=== PATIENT | female | born 1930 | race Caucasian/White ===

== ENCOUNTER 2017-02-08 07:37 | Inpatient (IN) | payer OTHER, MEDICAID ==
--- NOTE | 2017-02-08 07:50 | EDPHY ---
HPI/HX/ROS/PE/MDM Narrative: CHIEF COMPLAINT: Fall HPI: The patient is an 86-year-old female with dementia who lives at the [facility]. Over the last 24 hr, the patient apparently had a fall and was found on the floor next to her bed. It is unclear what happened or how long she was there for. The patient's only complaint is mild pain in the upper neck. Per staff related to EMS, the patient was recently started on oxycodone and has been having a significant amount of difficulty walking as well as continuous shaking since being on this medication. This is similar to previous reaction when she was on this medication. The patient denies any complaints on my exam. She is extremely hard of hearing and a white board is used to communicate. REVIEW OF SYSTEMS: Aside from elements discussed in the HPI, a comprehensive 10-point review of systems was reviewed and is negative. PMH: Includes dementia, Hypertension, diabetes. SOCIAL HISTORY: Lives in assisted living facility. Family at bedside. PHYSICAL EXAM: General:Patient is alert, in no acute distress. ENT:Eyes are normal to inspection. ENT inspection normal. Neck: Normal inspection. Full range of motion. Respiratory:No respiratory distress. Breath sounds normal bilaterally. Cardiovascular: Regular rate and rhythm. Strong peripheral pulses. Normal cap refill. Abdomen:The abdomen is nontender to palpation. There are no peritoneal signs. There are normal bowel sounds. Back: Normal to inspection. No tenderness to palpation. Skin: Normal color. No rash. Warm and dry. Extremities: Normal appearance. Full range of motion. Neuro: Normal motor function. Normal sensory function. ED Course: 86-year-old female with dementia presents following an unwitnessed fall in the last 24 hours complaining of mild pain in the upper neck. Normal inspection of the neck, full range of motion. Exam unremarkable. Plan for labs including CBC, BMP, Troponin, UA. Plan for CT head and cervical spine. 09:[address] Araujo, radiologist. CT head and c-spine negative for acute processes. 10:00 Reassessed patient. 10:09 Consulted with [place] staff regarding admission for this patient. They prefer she be admitted here at [facility], and state there will be no difference in billing coverage between institutions. 10:14 Spoke with hospitalist service. Dr. Teran accepts admission for failure to thrive, altered mental status. - Data Points Imaging Results: Imaging Impressions Cervical Spine CT 02/08/17 07:40 Impression: 1. No definite fracture. 2. Moderate cervical spondylosis with degenerative retrolisthesis, disk/ osteophyte complexes, and bilateral uncovertebral osteophytes from C3-C4 through C6-C7, resulting in mild to moderate central canal stenosis and bilateral neural foraminal stenosis. 3. If there is persistent pain or neurological deficit, recommend MRI cervical spine and consider flexion and extension views, if clinically indicated. Findings and recommendations discussed with emergency department physician, Bandar Ricci MD at 0940 hours, February 08, 2017. Final report concurs with initial preliminary interpretation. Head CT 02/08/17 07:40 Impression: 1. Mild atrophy. 2. No acute hemorrhage, hydrocephalus, or mass effect. 3. Cerebrovascular atherosclerosis. 4. No definite acute infarct. 5. Mild microvascular ischemic gliosis. 6. Consider MRI of the brain, if there is continued clinical concern. Findings and recommendations discussed with Emergency Department physician, Bandar Ricci MD at 9:40 hour, 02/08/2017. Final report concurs with initial preliminary interpretation. Imaging: Discussed imaging studies w/ body recall instructor Radiologist Laboratory Results: Laboratory Results 02/08/17 08:16 02/08/17 08:16 02/08/17 02/08/17 02/08/17 08:16 08:16 08:09 WBC 10.36 10^3/uL H 10^3/uL (3.80-9.50) RBC 4.83 10^6/uL 10^6/uL (4.18-5.33) Hgb 13.6 g/dL g/dL (12.6-16.3) Hct 42.4 % % (38.0-47.0) MCV 87.8 fL fL (81.5-99.8) MCH 28.2 pg pg (27.9-34.1) MCHC 32.1 g/dL L g/dL (32.4-36.7) RDW 13.5 % % (11.5-15.2) Plt Count 253 10^3/uL 10^3/uL (150-400) MPV 10.1 fL fL (8.7-11.7) Neut % (Auto) 78.5 % H % (39.3-74.2) Lymph % (Auto) 10.7 % L % (15.0-45.0) [place] % (Auto) 9.1 % % (4.5-13.0) Eos % (Auto) 0.6 % % (0.6-7.6) Baso % (Auto) 0.7 % % (0.3-1.7) Nucleat RBC Rel Count 0.0 % % (0.0-0.2) Absolute Neuts (auto) 8.14 10^3/uL H 10^3/uL (1.70-6.50) Absolute Lymphs (auto) 1.11 10^3/uL 10^3/uL (1.00-3.00) Absolute Monos (auto) 0.94 10^3/uL H 10^3/uL (0.30-0.80) Absolute Eos (auto) 0.06 10^3/uL 10^3/uL (0.03-0.40) Absolute Basos (auto) 0.07 10^3/uL 10^3/uL (0.02-0.10) Absolute Nucleated RBC 0.00 10^3/uL 10^3/uL (0-0.01) Immature Gran % 0.4 % % (0.0-1.1) Immature Gran # 0.04 10^3/uL 10^3/uL (0.00-0.10) Sodium 145 mEq/L H mEq/L (134-144) Potassium 4.6 mEq/L mEq/L (3.5-5.2) Chloride 108 mEq/L mEq/L (97-110) Carbon Dioxide 20 mEq/l L mEq/l (22-31) Anion Gap 17 mEq/L H mEq/L (8-16) BUN 35 mg/dL H mg/dL (7-23) Creatinine 0.8 mg/dL mg/dL (0.6-1.0) Estimated GFR > 60 Glucose 150 mg/dL H mg/dL (70-100) Calcium 10.4 mg/dL mg/dL (8.5-10.4) Troponin I 0.023 ng/mL ng/mL (0.000-0.034) Urine Color YELLOW Urine Appearance HAZY Urine pH 5.0 (5.0-7.5) Ur Specific [place] 1.025 (1.002-1.030) Urine Protein 1+ H (NEGATIVE) Urine Ketones TRACE H (NEGATIVE) Urine Blood 2+ H (NEGATIVE) Urine Nitrate NEGATIVE (NEGATIVE) Urine Bilirubin NEGATIVE (NEGATIVE) Urine Urobilinogen NEGATIVE EU EU (0.2-1.0) Ur Leukocyte Esterase TRACE H (NEGATIVE) Urine RBC 1-3 /hpf /hpf (0-3) Urine WBC 1-3 /hpf /hpf (0-3) Ur Epithelial Cells TRACE /lpf /lpf (NONE-1+) Hyaline Casts 1-5 /lpf /lpf (0-1) Urine Mucus TRACE /lpf /lpf (NONE-1+) Urine Glucose NEGATIVE (NEGATIVE) General Initial Vital Signs: Initial Vital Signs Temperature (C) 37.1 C 02/08/17 07:37 Heart Rate 77 02/08/17 07:37 Respiratory Rate 16 02/08/17 07:37 Blood Pressure 160/96 H 02/08/17 07:37 O2 Sat (%) 97 02/08/17 07:37 O2 Delivery Mode Room Air Allergies/Adverse Reactions: No Known Allergies Allergy (Unverified 02/08/17 10:38) Home Medications: Medication Instructions Recorded Aspirin 81mg (*) 02/08/17 Calazine Skin Protecant Cream 1 brandy TP BID 02/08/17 Metformin HCl 02/08/17 Oxycodone HCl 02/08/17 Risperidone 02/08/17 Sertraline HCl 02/08/17 Tylenol 02/08/17 Vitamin B12 02/08/17 Vitamin D3 02/08/17 Departure - Departure Disposition: [facility] Inpatient Acute Clinical Impression: Failure to thrive in adult Condition: Fair Referrals: Patient,NotPresent [Unknown] - As per Instructions Report Scribed for: Bandar Ricci Report Scribed by: Fernanda Stewart Date of Report: 02/08/17 Time of Report: 08:09 Physician Review and Approval Statement: Portions of this note were transcribed by an ED scribe. I personally performed the history, physical exam, and medical decision making; and confirm the accuracy of the information in the transcribed note.
--- NOTE | 2017-02-08 08:23 | CPEKG ---
Heart Rate: 75 RR Interval: 800 P-R Interval: 136 QRSD Interval: 72 QT Interval: 420 QTC Interval: 470 P [place]: 78 QRS [place]: 17 T Wave [place]: 61 EKG Severity - BORDERLINE ECG - EKG Impression: SINUS RHYTHM EKG Impression: ATRIAL PREMATURE COMPLEX EKG Impression: BORDERLINE T ABNORMALITIES, LATERAL LEADS Electronically Signed By: Bandar Ricci 08-Feb-2017 14:40:43
[2017-02-08 08:24] LABS: PLATELET COUNT 253 10^3/uL (150-400)
[2017-02-08] MEDS ORDERED: ONDANSETRON DISINTEGRATING 4 MG TAB PO PRN (10:49)
[2017-02-08] MEDS ORDERED: ONDANSETRON 4 MG/2 ML VIAL IVP PRN (10:49)
[2017-02-08] MEDS ORDERED: HYDROCODONE/APAP 5/325 TAB PO PRN (10:49)
[2017-02-08] MEDS ORDERED: ACETAMINOPHEN 325 MG TAB PO PRN (10:49)
--- NOTE | 2017-02-08 11:06 | ASMTCMCOM ---
CM Note CM Note Notes: Patient resides in [place] at [facility]. She is surrounded by supportive family and they will be available if discharge planning needs arise. CM to follow PRN Date Signed: 02/08/2017 11:05 AM Electronically Signed By:Cata Tierney RN
[2017-02-08] MEDS: D5W 1/2 NS 1,000 ML IV SCH (11:55)
[2017-02-08] MEDS ORDERED: SERTRALINE HCL 100 MG TAB PO SCH (12:35)
[2017-02-08] MEDS: ACETAMINOPHEN 500 MG TAB PO SCH ×2 (16:04→20:49)
[2017-02-08] MEDS: risperiDONE 0.25 MG TAB PO SCH ×2 (16:04→20:49)
[2017-02-08] MEDS: SERTRALINE HCL 100 MG TAB PO SCH (16:19)
--- NOTE | 2017-02-08 16:20 | ASMTCMCOM ---
CM Note CM Note Notes: Patient's nurse requested help with getting patient's advanced directives from Kayce Whitemihaela Lovett. Kayce Tuttle was unable to email or fax them today so we will contact Rebekah ([phone]) tomorrow and she will fax them. CM will follow. Date Signed: 02/08/2017 04:20 PM Electronically Signed By:Yaritza Lutz LCSW
[2017-02-08] MEDS ORDERED: MAGNESIUM HYDROXIDE 30 ML UDCUP PO PRN (17:22)
[2017-02-08] MEDS ORDERED: LACTULOSE 20 GM/30 ML UDCUP PO PRN (17:22)
[2017-02-08] MEDS ORDERED: BISACODYL 10 MG SUPP PR PRN (17:22)
[2017-02-08] MEDS: POLYETHYLENE GLYCOL 3350 17 GM PKT PO SCH (17:35)
--- NOTE | 2017-02-08 18:30 | GHP ---
[f rep st] HISTORY AND PHYSICAL DATE OF ADMISSION: 02/08/2017 CHIEF COMPLAINT: Confusion, status post fall. HISTORY OF PRESENT ILLNESS: The patient is an 86-year-old female with dementia who lives at the [facility], who was found on her floor after having an apparent fall during the night. She was transported to the emergency department for evaluation for evaluation of upper neck pain. Of note, the patient is unable to give any history or details because of confusion and family was not present in the room at the time of admission. History is gleaned from the emergency department reports. She is a [facility] patient and no medical history is obtainable in [facility]. Reportedly she was started on oxycodone recently because of ongoing arthritic pain and decreased mobility. She was having some hallucinations yesterday, which is not a usual symptom for her. In the past when she had similar symptoms it was either because of medication or a UTI. She is very hard of hearing and communication had to occur on a white board in the emergency department. She was quite somnolent when I tried to examine her today, but per the nurses, she was very tired after working with Physical Therapy. REVIEW OF SYSTEMS: unable to evaluate except as above because of hard of hearing, dementia, and somnolence. PAST MEDICAL HISTORY: Dementia, hypertension, type 2 diabetes, and osteoarthritis. SOCIAL HISTORY: She lives at the [facility]. She has several family members locally. ALLERGIES: No known drug allergies. MEDICATIONS: Vitamin D3 daily, B12 daily, Tylenol 1000 mg 3 times daily scheduled, Zoloft 150 mg daily, Risperdal 0.25 mg twice daily, oxycodone IR 2.5 mg 3 times daily scheduled (this is reportedly new for her), metformin 500 mg daily, aspirin 81 mg daily FAMILY HISTORY: Noncontributory. PHYSICAL EXAMINATION: VITAL SIGNS: Blood pressure is 151/90. Heart rate is 81. Respiratory rate is 16. She is 97% on room air. Temperature was 97.2. GENERAL: She is an elderly female who is sleeping quite deeply, but does arouse with stimulation. HEENT: Normocephalic, atraumatic. Oropharynx is slightly dry. NECK: Supple. No lymphadenopathy or JVD appreciated. CARDIOVASCULAR: Regular rate and rhythm without murmur. LUNGS: Clear to auscultation bilaterally without rhonchi, wheezes, or crackles. ABDOMEN: Soft with normoactive bowel sounds. No masses or tenderness noted. : Deferred. BREASTS: Exam is deferred. SKIN: No obvious visible trauma or rash. NEUROLOGIC: Per emergency department was nonfocal. MUSCULOSKELETAL: Moves all extremities. PSYCH: unable to assess LABORATORY DATA: White blood cell count 10.36, hemoglobin 13.6, hematocrit 42.4 , platelet count 253. Sodium 145, potassium 4.6, chloride 108, CO2 of 20, BUN of 35, creatinine 0.8, glucose 150, calcium 10.4. Troponin 0.23. Urine showed 1+ protein, 2+ blood, negative nitrite, trace leukocyte esterase. IMAGING STUDIES: Pelvis x-ray showed severe osteoarthritis in the right hip, moderate osteoarthritis in the left hip, and constipation. No fractures noted. Head CT and cervical spine CT were done and showed mild atrophy. No acute hemorrhage or infarct. She does have some mild microvascular ischemic gliosis and cerebrovascular atherosclerosis. Cervical spine CT with no definitive fracture, moderate cervical spondylolysis, bilateral osteophytes, and mild to moderate central canal stenosis. Imaging studies were personally reviewed by myself and agree with interpretations. EKG shows sinus rhythm with occasional PACs. ASSESSMENT AND PLAN: 1. Confusion. I will attempt to contact family and verify her mental status with them.Likely this is related to new addition of opioid medication that was scheduled. I will hold all opioid medication, but continue with Tylenol scheduled. At this time, no indication of infection, but will monitor vital signs and repeat studies as needed. 2. Status post presumed fall. I have asked Physical Therapy and Occupational Therapy to evaluate her. She is currently at an assisted living that does not have any in-house PT/OT. It is likely that discharge will need to involve PT/OT , whether that is at a [facility]p facility, rehabilitation or through home care. Of note, she is a [facility] patient, so case management will need to contact [facility] regarding discharge planning also. 3. History of dementia. Home medications will be continued. I will try to speak to family regarding ongoing mental status to verify when she is back at baseline. 4. Constipation. Noted on pelvic x-rays. Bowel protocol is started. 5. Diabetes. Hold metformin for now. I will order blood sugar checks. 6. Hyponatremia, mild. Will provide some intravenous hydration and recheck in the morning. 7. Metabolic acidosis, mild. Intravenous hydration and recheck in the morning. DISPOSITION: Anticipate greater than 2 midnights for evaluation of altered mental status and disposition planning. DVT prophylaxis. Started on Lovenox. DNR MTDD
[2017-02-08] MEDS: [UNRECOGNIZED DRUG - MIXTURE] TP SCH (20:47)
[2017-02-08] MEDS ORDERED: risperiDONE 0.25 MG TAB PO SCH (21:00)
[2017-02-09 05:10] LABS: PLATELET COUNT 212 10^3/uL (150-400)
[2017-02-09] MEDS: D5W 1/2 NS 1,000 ML IV SCH (08:57)
[2017-02-09] MEDS ORDERED: SERTRALINE HCL 100 MG TAB PO SCH (09:00)
[2017-02-09] MEDS: ENOXAPARIN 40 MG/0.4 ML SYR SC SCH (10:17)
[2017-02-09] MEDS: POLYETHYLENE GLYCOL 3350 17 GM PKT PO SCH (10:18)
[2017-02-09] MEDS: risperiDONE 0.25 MG TAB PO SCH ×2 (10:19→21:51)
[2017-02-09] MEDS: ACETAMINOPHEN 500 MG TAB PO SCH ×3 (10:19→21:50)
[2017-02-09] MEDS: ASPIRIN 81 MG CHEWABLE TAB PO SCH (10:19)
[2017-02-09] MEDS: CYANO/VITAMIN B12 1000 MCG TAB PO SCH (10:19)
[2017-02-09] MEDS: SERTRALINE HCL 100 MG TAB PO SCH (10:20)
[2017-02-09] MEDS: CHOLECALCIFEROL VIT D3 1,000 UNITS TAB PO SCH (10:20)
[2017-02-09] MEDS: [UNRECOGNIZED DRUG - MIXTURE] TP SCH ×2 (10:23→22:47)
--- NOTE | 2017-02-09 14:55 | ASMTCMCOM ---
CM Note CM Note Notes: CM spoke w/ Dr. Teran regarding d/c POC. Therapies are recommending SNF. CM spoke w/ Yael, a [facility] insurance follow up representative (P#: [phone]). She suggested referrals made to [facility] in [place] and [facility]. CM spoke w/ daughter, May and discussed d/c POC. CM made referrals to recommended facilities. PASRR completed. Plan: SNF Date Signed: 02/09/2017 02:55 PM Electronically Signed By:JENNIFER Callaway
--- NOTE | 2017-02-09 15:58 | ASMTCMCOM ---
CM Note CM Note Notes: CM met w/ family face to face to discuss d/c plans further. Familys first choice is [facility], second is [facility] and third is [facility] in [place]. CM recieved a call from [facility] and they do not have a bed today or tomorrow. Yany will call to touch base tomorrow. CM to follow. Plan: SNF Date Signed: 02/09/2017 03:57 PM Electronically Signed By:JENNIFER Callaway
--- NOTE | 2017-02-09 18:45 | SOAPPROG ---
SOAP Progress Note Assessment/Plan: 1. Confusion -back to baseline per family - family says did not have confusion with tramadol, so this was restarted 2. Status post presumed fall -Physical Therapy and Occupational Therapy -restart tramadol -case management working with [facility]/family re possible rehab stay 3. History of dementia -Home medications -back at baseline per family 4. Constipation. Noted on pelvic x-rays -Bowel protocol is started. 5. Diabetes. -Hold metformin -blood sugar checks. 6. Hyponatremia, mild. -recheck in the morning. 7. Metabolic acidosis, mild. resolved 8. Severe arthritis and decreased mobility -see above DVT prophylaxis:Lovenox. Subjective: Very hard of hearing, so communicate with white board. Family in room, says she is 'back to nl.' Good appetite. They are worried about her mobility/pain, and if will be able to continue at [facility] after rehab. She denies any concerns except R hip pain. Doesn't remember how she fell, maybe just slipped out of bed per her report, then couldn't get back up. Objective: Vital Signs Temp Pulse Resp BP Pulse Ox 97.6 F 76 16 147/79 H 95 02/09/17 16:20 02/09/17 16:20 02/09/17 16:20 02/09/17 16:20 02/09/17 16:20 Laboratory Results 02/09/17 04:35 02/09/17 04:35 02/08/17 02/09/17 02/10/17 11:59 11:59 11:59 Intake Total 475 Output Total 41 Balance 434 - Time Spent With Patient Time Spent With Patient: 30 - Pending Discharge Pending Discharge Within 48 Hours: Yes Pending Discharge Date: 02/11/17 Pending Discharge Time: 11:00 Physical Exam - Physical Exam General Appearance: alert, no apparent distress Respiratory: lungs clear, normal breath sounds, No respiratory distress Cardiac/Chest: regular rate, rhythm, No edema Abdomen: normal bowel sounds, non-tender, soft, No guarding, No rebound Skin: warm/dry Neuro/Psych: alert, normal mood/affect, cognition abnormalities ('baseline' per family), No speech abnormalities ICD10 Worksheet Patient Problems: Problems Problem Status Onset Failure to thrive in adult Acute
[2017-02-09] MEDS: traMADol 50 MG TAB PO SCH (22:45)
--- NOTE | 2017-02-10 08:13 | HOSPPROG ---
Hospitalist Progress Note Assessment/Plan: #Acute on chronic encephalopathy: underlying dementia -h/o dementia. CTH negative, negative UA -suspect due to opioids. Now improved #Bradycardia: new today. Some dizziness. Hard to determine if correlated to low HR. Repeat EKG with junctional rhythm. Will monitor on telemetry -not on AV-gabriel blocking agents. Cards reviewed and agree not a great candidate for pacer if symptoms progressed #Diabetes: metformin #s/p presumed fall: PT #Hyponatremia: mild. Encourage PO #Diet: regular #DVT ppx: Lovenox #Disp: can DC tomorrow to SNF if clinically stable. Cont telemetry overnight #Code status: DNR Subjective: dizziness with PT today, new bradycardia. No chest pain or SOB Objective: Vital Signs Temp Pulse Resp BP Pulse Ox 36.6 C 76 16 152/78 H 96 02/10/17 07:49 02/10/17 07:49 02/10/17 07:49 02/10/17 07:49 02/10/17 07:49 Laboratory Results 02/09/17 04:35 02/09/17 04:35 02/09/17 02/10/17 02/11/17 05:59 05:59 05:59 Intake Total 475 Output Total 41 Balance 434 - Physical Exam Constitutional: no apparent distress Eyes: PERRL Ears, Nose, Mouth, Throat: moist mucous membranes, hard of hearing Cardiovascular: bradycardia, No edema Respiratory: no respiratory distress, no rales or rhonchi Gastrointestinal: normoactive bowel sounds Genitourinary: no bladder fullness Skin: warm Musculoskeletal: full muscle strength Neurologic: AAOx3, CN II-XII Intact Psychiatric: interacting appropriately ICD10 Worksheet Patient Problems: Problems Problem Status Onset Failure to thrive in adult Acute
[2017-02-10] MEDS: ENOXAPARIN 40 MG/0.4 ML SYR SC SCH (09:17)
[2017-02-10] MEDS: risperiDONE 0.25 MG TAB PO SCH ×2 (09:18→21:13)
[2017-02-10] MEDS: CHOLECALCIFEROL VIT D3 1,000 UNITS TAB PO SCH (09:18)
[2017-02-10] MEDS: POLYETHYLENE GLYCOL 3350 17 GM PKT PO SCH (09:18)
[2017-02-10] MEDS: ASPIRIN 81 MG CHEWABLE TAB PO SCH (09:18)
[2017-02-10] MEDS: traMADol 50 MG TAB PO SCH ×3 (09:18→23:02)
[2017-02-10] MEDS: SERTRALINE HCL 100 MG TAB PO SCH (09:19)
[2017-02-10] MEDS: CYANO/VITAMIN B12 1000 MCG TAB PO SCH (09:19)
[2017-02-10] MEDS: ACETAMINOPHEN 500 MG TAB PO SCH ×3 (09:19→21:13)
[2017-02-10] MEDS: [UNRECOGNIZED DRUG - MIXTURE] TP SCH ×2 (09:23→19:53)
[2017-02-10] MEDS: LIDOCAINE 5% 1 EA PATCH TD SCH (11:55)
--- NOTE | 2017-02-10 12:17 | CPEKG ---
Heart Rate: 59 RR Interval: 1017 P-R Interval: 120 QRSD Interval: 66 QT Interval: 480 QTC Interval: 476 P [place]: 0 QRS [place]: 16 T Wave [place]: 63 EKG Severity - ABNORMAL ECG - EKG Impression: WANDERING PACEMAKER EKG Impression: BORDERLINE R WAVE PROGRESSION, ANTERIOR LEADS Electronically Signed By: Franc Grubbs 10-Feb-2017 14:55:03
--- NOTE | 2017-02-10 14:31 | ASMTCMCOM ---
CM Note CM Note Notes: Spoke w/Gonzalo from [facility], can take pt but won't have bed until tomorrow. CM notified pt's dtr May. DC Plan: [facility] Date Signed: 02/10/2017 02:30 PM Electronically Signed By:Terrie Gallegos RN
[2017-02-10] MEDS ORDERED: PATCH REMOVAL 1 EA PATCH TD SCH (21:00)
[2017-02-11] MEDS: ACETAMINOPHEN 500 MG TAB PO SCH (09:56)
[2017-02-11] MEDS: ASPIRIN 81 MG CHEWABLE TAB PO SCH (09:57)
[2017-02-11] MEDS: CHOLECALCIFEROL VIT D3 1,000 UNITS TAB PO SCH (09:57)
[2017-02-11] MEDS: SERTRALINE HCL 100 MG TAB PO SCH (09:57)
[2017-02-11] MEDS: CYANO/VITAMIN B12 1000 MCG TAB PO SCH (09:57)
[2017-02-11] MEDS: risperiDONE 0.25 MG TAB PO SCH (09:57)
[2017-02-11] MEDS: traMADol 50 MG TAB PO SCH (09:57)
[2017-02-11] MEDS: ENOXAPARIN 40 MG/0.4 ML SYR SC SCH (10:02)
[2017-02-11] MEDS: POLYETHYLENE GLYCOL 3350 17 GM PKT PO SCH (10:02)
[2017-02-11] MEDS: LIDOCAINE 5% 1 EA PATCH TD SCH (10:03)
[2017-02-11] MEDS: [UNRECOGNIZED DRUG - MIXTURE] TP SCH (10:09)
--- NOTE | 2017-02-11 10:12 | PDDCSUM ---
Discharge Summary Discharge Summary: 86 yo female admitted with acute confusion, fall, likely due to Opiates. Please see H&P for for complete details. Still continues to be weak with generalized weakness. Mentation is back to baseline. She is ready for d/c to [facility]. DDX: #Acute on chronic encephalopathy: underlying dementia -h/o dementia. CTH negative, negative UA -suspect due to opioids. Now improved #Bradycardia: Repeat EKG with junctional rhythm. Will monitor on telemetry -not on AV-gabriel blocking agents. Cards reviewed and agree not a great candidate for pacer if symptoms progressed #Diabetes: metformin resumed #s/p presumed fall: PT #Hyponatremia: mild. Encourage PO Exam: VSS NAD ALERT, AWAKE RRR CTA B S/NT/N NO LE EDEMA D/C MEDS: SEE MED REC F/U: WITH PCP IN ONE WEEK TOTAL TIME SPENT ON D/C IS 36 MINS
[2017-02-11 11:25] VITALS: BP 147/69; PULSE 58; RESP 20; TEMP 97.5; O2SAT 98
--- NOTE | 2017-02-11 11:33 | PDIAF ---
- Diagnosis Diagnosis: fall, confusion, generalized weakness Code Status: Do Not Resuscitate - Medication Management Discharge Medications: Medications to Continue on Transfer Acetaminophen [Tylenol ES 500 mg (*)] 1,000 mg PO TID 02/08/17 [Last Taken 02/07] Aspirin [Aspirin 81mg (*)] 81 mg PO DAILY 02/08/17 [Last Taken 02/07/17] Calazine Skin Protecant Cream 1 brandy TP BID 02/08/17 [Last Taken 02/07/17] Cholecalciferol Vit D3 [Vitamin D3 (*)] 1,000 units PO DAILY 02/08/17 [Last Taken 02/07/17] Cyanocobalamin [Vitamin B12 (*)] 1,000 mcg PO DAILY 02/08/17 [Last Taken ] Metformin HCl [Metformin 1000 mg] 500 mg PO DAILY 02/08/17 [Last Taken 02/07/17] Sertraline HCl [Zoloft 100mg (*)] 150 mg PO DAILY 02/08/17 [Last Taken 02/07/17] risperiDONE [Risperdal 0.25mg (*)] 0.25 mg PO BID 02/08/17 [Last Taken 02/07/17] Lidocaine 5% [Lidoderm 5% Patch (*)] 1 ea TD DAILY #20 patch 02/11/17 [Last Taken Unknown] Patch Removal 1 ea TD DAILY21 patch 02/11/17 [Last Taken Unknown] traMADol [Ultram 50 mg (*)] 50 mg PO TID #14 tab 02/11/17 [Last Taken Unknown] Discharge Medications: Refer to the Discharge Home Medication list for PRN reason. - Orders Services needed: Registered Nurse, Physical Therapy, Occupational Therapy Diet Recommendation: no restrictions on diet Diet Texture: Regular Texture Diet - Follow Up Care Current Providers and Referrals: Patient,NotPresent [Unknown] - As per Instructions
--- NOTE | 2017-02-12 15:05 | ASDISCHSUM ---
Discharge Information Plan Status:SNF Medically Cleared to Leave: Discharge Date:02/11/2017 03:35 PM CM D/C Disposition:Shelter Facility ADT D/C Disposition:Shelter Facility Projected Discharge Date:02/11/2017 11:00 AM Transportation at D/C:ALS/BLS Discharge Delay Reason: Follow-Up Date:02/11/2017 11:00 AM Discharge Slot: Final Diagnosis: Placement Information Referral Type:*Longterm/SNF Referral ID:[id number] Provider Name:Shanelle Brand Address 1:[address] Phone Number: Address 2: Fax Number: City:[place] Selection Factors: State:[place] Patient Contact Information Contact Name:ORA Relationship:Daughter Address:[address] Work Phone: [facility] Phone: [facility] Code:[place] [address] Email: Financial Information Financial Class:Medicare Advantage Plans Primary Plan Desc:[facility] MED[employer]ARE ADV IP Primary Plan Number:[id number] Secondary Plan Desc:[place] Secondary Plan Number:[id number] Assessment Information LACE LACE Acuity / Level of Care Answers: Was the patient admitted to hospital via the emergency department? Yes: Comorbidities - select Answers: Dementia all that apply Emergency dept visits in Answers: 1 last 6 months Score: 7 Date Signed: 02/08/2017 11:02 AM Electronically Signed By:Cata Tierney RN [facility] CM Progress Note CM Note CM Note Notes: Patient resides in NH at [facility]. She is surrounded by supportive family and they will be available if discharge planning needs arise. CM to follow PRN Date Signed: 02/08/2017 11:05 AM Electronically Signed By:Cata Tierney RN [facility] CM Progress Note CM Note CM Note Notes: Patient's nurse requested help with getting patient's advanced directives from Kayce Lovett. Kayce Tuttle was unable to email or fax them today so we will contact Rebekah ([phone]) tomorrow and she will fax them. CM will follow. Date Signed: 02/08/2017 04:20 PM Electronically Signed By:Yaritza Lutz LCSW [facility] CM Progress Note CM Note CM Note Notes: CM spoke w/ Dr. Teran regarding d/c POC. Therapies are recommending SNF. IKE spoke w/ Yael, a [facility] asset protection representative (P#: [phone]). She suggested referrals made to [facility] in [facility]. CM spoke w/ daughter, May and discussed d/c POC. CM made referrals to recommended facilities. PASRR completed. Plan: SNF Date Signed: 02/09/2017 02:55 PM Electronically Signed By:JENNIFER Callaway [facility] CM Progress Note CM Note CM Note Notes: CM met w/ family face to face to discuss d/c plans further. Familys first choice is [facility], second is [facility] and third is [facility] in [place]. CM recieved a call from [facility]any and they do not have a bed today or tomorrow. Yany will call to touch base tomorrow. CM to follow. Plan: [facility] Date Signed: 02/09/2017 03:57 PM Electronically Signed By:JENNIFER Callaway [facility] Progress Note CM Note CM Note Notes: [facility] but won't have [facility] until tomorrow. CM notified pt's dtr May. DC Plan: [facility] Date Signed: 02/10/2017 02:30 PM Electronically Signed By:Terrie Gallegos RN Case Management Discharge Plan Note Case Management Discharge Discharge Order Complete? Answers: Yes Patient to Obtain Answers: via Family Medications Transportation Arranged Answers: [facility] [employer] [facility] will Pick (Date 02/11/2017 03:00 PM & Time) Faxed Final Orders Answers: Yes Family Notified Answers: Yes Discharge Comments Notes: Patient discharged to [facility]. Orders faxed to facility. Transport through [facility] [place] confirmation # [id number]. Called patient's daughter May and left messge informing her of discharge plan. JOSE Corona to call report to SNF. Date Signed: 02/11/2017 12:26 PM Electronically Signed By:Olga Vergara RN Intervention Information
== END 2017-02-11 15:35 | DRG 92 ==
LOC: OBSVTOIN 10:54 → F3E 11:25
PROVIDERS: ADMIT Family Medicine; ATTEND Family Medicine
DX: G92 Toxic encephalopathy (principal); T40.2X5A Adverse effect of other opioids, initial encounter; F03.90 Unspecified dementia, unspecified severity, without behavioral disturbance, psychotic disturbance, mood disturbance, and anxiety; E87.1 Hypo-osmolality and hyponatremia; E87.2 Acidosis; R53.1 Weakness; R00.1 Bradycardia, unspecified; E11.9 Type 2 diabetes mellitus without complications; I10 Essential (primary) hypertension; K59.00 Constipation, unspecified; H91.90 Unspecified hearing loss, unspecified ear; M19.90 Unspecified osteoarthritis, unspecified site; Z66 Do not resuscitate; Z79.84 Long term (current) use of oral hypoglycemic drugs
CPT/HCPCS: 97110-GP; 97116-GP; 97162-GP; 97166-GO; 97530-GP; 97535-GO; J1650

== ENCOUNTER 2017-06-04 22:26 | Emergency (ER) | payer OTHER, MEDICAID ==
--- NOTE | 2017-06-04 22:38 | EDPHY ---
H & P - Medical/Surgical History Hx Asthma: No Hx Chronic Respiratory Disease: No Hx Diabetes: Yes Hx Cardiac Disease: No Hx Renal Disease: No Hx Cirrhosis: No Hx Alcoholism: No Hx HIV/AIDS: No Hx Splenectomy or Spleen Trauma: No Other PMH: DM, HTN, dementia, arthritis - Social History Smoking Status: Never smoked Time Seen by Provider: 06/04/17 22:34 HPI/ROS: CHIEF COMPLAINT: Head injury, right hip injury HISTORY OF PRESENT ILLNESS: 87-year-old female arrives via ambulance from her nursing facility after she went into her closet looking for clothing, lost her balance impacted her right side of head. This was not witnessed but was heard by staff who were quickly at her bedside within a few seconds. There are no prolonged periods of immobility on the floor. No seizure activity. Patient states that this was not a syncopal episode,. She is also complaining of right hip pain but does note history of chronic right hip pain. PRIMARY CARE PROVIDER: Jorge REVIEW OF SYSTEMS: A ten point review of systems was performed and is negative with the exception of the items mentioned in the HPI PAST MEDICAL/SURGICAL HISTORY: no anticoagulant use, chronic right hip pain. Dementia. SOCIAL HISTORY: denies alcohol use at time of incident PHYSICAL EXAM 1) GENERAL: Alert and oriented. Appears to be in no acute distress. Answering questions appropriately. 2) HEAD: Normocephalic, right temporoparietal 4 cm vertically-oriented linear superficial laceration 3) HEENT: Pupils equal, round, reactive to light bilaterally. Negative Horners. Nasopharynx, oropharynx, clear. No deformity or angulation of nose. No septal hematoma. No rhinorrhea. No oral trauma. Ears bilaterally with normal tympanic membranes. No hemotympanum. No fluid or blood in the external auditory canal. No raccoon eyes. No Lopez sign. Teeth are normally aligned with no gross malocclusion, TMJ bilaterally nontender, facial bones nontender including the zygomatic arch, maxilla mandible. 4) NECK: No cervical collar is on. Posterior cervical spine is nontender, no stepoff, no effusion. Full range of motion which does not elicit any midline cervical spine pain, no posterior midline tenderness, no step-off.] 5) LUNGS: Clear to auscultation bilaterally, no wheezes, no rhonchi, no retractions. No obvious signs of trauma. No chest wall pain. No flaring, no grunting. Moving symmetrically. No crepitus. 6) HEART: [Regular rate and rhythm, 7) ABDOMEN: No guarding, no rebound, no focal tenderness, no peritoneal signs, no signs of trauma, no ecchymosis 8) MUSCULOSKELETAL: Right lower extremity: No visible trauma. Tender to palpation right inguinal region reproducible with both palpation and range of motion. No shortening or malrotation. Distal DP PT pulses present and brisk. Otherwise, Moving all extremities, no focal areas of tenderness, no obvious trauma. 9) BACK: No midline vertebral tenderness, no fluctuance, no step-off, no obvious trauma, no visual or palpable abnormality. 10) SKIN: scalp laceration n DIFFERENTIAL DIAGNOSIS: Not necessarily in any particular order, my differential diagnosis includes, but is not limited to, concussion, skull fracture, intraparenchymal contusion, subarachnoid, subdural and epidural hematoma. The patient understands that this diagnosis is provisional and can never be 100% accurate. (Annie Waldron) Constitutional: Initial Vital Signs Temperature (C) 36.3 C 06/04/17 22:37 Heart Rate 50 L 06/04/17 22:37 Respiratory Rate 16 06/04/17 22:37 Blood Pressure 144/77 H 06/04/17 22:37 O2 Sat (%) 95 06/04/17 22:37 O2 Delivery Mode Room Air Allergies/Adverse Reactions: No Known Allergies Allergy (Unverified 06/04/17 22:36) Home Medications: Medication Instructions Recorded Acetaminophen [Tylenol ES 500 mg 1,000 mg PO TID 02/08/17 (*)] Aspirin [Aspirin 81mg (*)] 81 mg PO DAILY 02/08/17 Calazine Skin Protecant Cream 1 brandy TP BID 02/08/17 Cholecalciferol Vit D3 [Vitamin D3 1,000 units PO DAILY 02/08/17 (*)] Cyanocobalamin [Vitamin B12 (*)] 1,000 mcg PO DAILY 02/08/17 Metformin HCl [Metformin 1000 mg] 500 mg PO DAILY 02/08/17 Sertraline HCl [Zoloft 100mg (*)] 150 mg PO DAILY 02/08/17 risperiDONE [Risperdal 0.25mg (*)] 0.25 mg PO BID 02/08/17 Lidocaine 5% [Lidoderm 5% Patch] 1 ea TD DAILY #20 patch 02/11/17 Patch Removal 1 ea TD DAILY21 patch 02/11/17 traMADol [Ultram 50 mg (*)] 50 mg PO TID #14 tab 02/11/17 Medical Decision Making - Diagnostics Imaging Results: Imaging Impressions Cervical Spine CT 06/04/17 22:37 Impression: Head CT: 1. No acute intracranial abnormalities. 2. Right frontoparietal scalp laceration. 3. Moderate volume loss and chronic microvascular ischemic change in the supratentorial white matter, similar to prior exam. Cervical Spine: 1. No acute abnormalities. 2. Degenerative changes, as above. 3. Cannot exclude ligament, spinal cord and/or vascular abnormalities on this exam. If there is persistent pain or neurologic deficit, consider MRI and/or flexion and extension radiographs of the cervical spine. Dr. Sams discussed these findings by telephone with Annie Waldron on 06/04 [address] 06/04/17 22:37 Impression: Head CT: 1. No acute intracranial abnormalities. 2. Right frontoparietal scalp laceration. 3. Moderate volume loss and chronic microvascular ischemic change in the supratentorial white matter, similar to prior exam. Cervical Spine: 1. No acute abnormalities. 2. Degenerative changes, as above. 3. Cannot exclude ligament, spinal cord and/or vascular abnormalities on this exam. If there is persistent pain or neurologic deficit, consider MRI and/or flexion and extension radiographs of the cervical spine. Dr. Sams discussed these findings by telephone with Annie Waldron on 06/04 at 2357 hours. Hip X-Ray 06/04/17 22:37 Impression: 1. No acute osseous abnormalities. If persistent concern for fracture, consider CT. 2. 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 Femur X-Ray 06/04/17 22:53 Impression: 1. No acute osseous abnormalities. If persistent concern for fracture, consider CT. 2. 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 Chest X-Ray 06/04/17 22:57 Impression: 1. No acute thoracic abnormality. 2. Right greater than left apical pleural thickening and calcification. Images reviewed myself (Annie Waldron) Procedures: Procedure: Laceration repair. I explained the indications, risks and benefits for both laceration repair and anesthetic administration. Verbal consent was obtained from the patient. The laceration on the right temporoparietal region was anesthetized using 0.5% bupivicaine with epinephrine. After anesthetic administered the patient was observed for a period of time and had no apparent adverse effects. The wound was cleaned, prepped, draped in normal sterile fashion and explored to its base. No foreign body seen, no foreign bodies palpated. No galea defects. The wound was repaired with 6 trent. The wound repair was complex. The procedure was performed by myself. Patient has been informed that scarring will occur, although efforts have been made to minimize this. (Annie Waldron) ED Course/Re-evaluation: Head CT ordered in this patient for trauma for the following indication: Greater than 65 years old. Patient noted to have an elevated BUN creatinine ratio. She has been given IV hydration in the ER. Patient was re-evaluated with serial examinations emergency department in the case discussed with secondary supervising physician Dr. Kwon in the ER. The patient describes a mechanical fall. I reviewed her laboratory studies. She has no evidence of intracranial hemorrhage, no skull fracture, no cervical fracture or other peripheral musculoskeletal fracture. This time I do not think that further diagnostic studies are indicated I think the patient can be discharged back to her living facility. The nursing staff has spoke with the daughter and observed the patient ambulating in the ER with a shuffle Ling gait with a walker which is baseline according to daughter who is en route to pick the patient up and transport her back to her nursing facility. (Annie Waldron) PHYSICIAN DOCUMENTATION: The patient was evaluated and managed by the Physician Insole Taper. My co- signature indicates that I have reviewed this chart and I agree with the findings and plan of care as documented. I am the secondary supervising physician. (Kristin Kwon) - Data Points Laboratory Results: Laboratory Results 06/04/17 23:15 06/04/17 23:15 06/04/17 06/04/17 23:15 23:15 WBC 8.09 10^3/uL 10^3/uL (3.80-9.50) RBC 4.56 10^6/uL 10^6/uL (4.18-5.33) Hgb 12.9 g/dL g/dL (12.6-16.3) Hct 40.6 % % (38.0-47.0) MCV 89.0 fL fL (81.5-99.8) MCH 28.3 pg pg (27.9-34.1) MCHC 31.8 g/dL L g/dL (32.4-36.7) RDW 14.1 % % (11.5-15.2) Plt Count 213 10^3/uL 10^3/uL (150-400) MPV 10.3 fL fL (8.7-11.7) Neut % (Auto) 70.7 % % (39.3-74.2) Lymph % (Auto) 14.0 % L % (15.0-45.0) [place] % (Auto) 9.9 % % (4.5-13.0) Eos % (Auto) 4.2 % % (0.6-7.6) Baso % (Auto) 0.7 % % (0.3-1.7) Nucleat RBC Rel Count 0.0 % % (0.0-0.2) Absolute Neuts (auto) 5.72 10^3/uL 10^3/uL (1.70-6.50) Absolute Lymphs (auto) 1.13 10^3/uL 10^3/uL (1.00-3.00) Absolute Monos (auto) 0.80 10^3/uL 10^3/uL (0.30-0.80) Absolute Eos (auto) 0.34 10^3/uL 10^3/uL (0.03-0.40) Absolute Basos (auto) 0.06 10^3/uL 10^3/uL (0.02-0.10) Absolute Nucleated RBC 0.00 10^3/uL 10^3/uL (0-0.01) Immature Gran % 0.5 % % (0.0-1.1) Immature Gran # 0.04 10^3/uL 10^3/uL (0.00-0.10) Sodium 139 mEq/L mEq/L (135-145) Potassium 5.0 mEq/L mEq/L (3.5-5.2) Chloride 104 mEq/L mEq/L (97-110) Carbon Dioxide 25 mEq/l mEq/l (22-31) Anion Gap 10 mEq/L mEq/L (8-16) BUN 35 mg/dL H mg/dL (7-23) Creatinine 1.0 mg/dL mg/dL (0.6-1.0) Estimated GFR 53 Glucose 135 mg/dL H mg/dL (70-100) Calcium 9.4 mg/dL mg/dL (8.5-10.4) Troponin I < 0.012 ng/mL ng/mL (0.000-0.034) Ethyl Alcohol < 10 mg/dL mg/dL (0-10) Medications Given: Discontinued Medications Sodium Chloride (Ns) 1,000 mls @ 0 mls/hr IV ONCE ONE PRN Reason: Wide Open Stop: 06/04/17 23:43 Last Admin: 06/04/17 23:50 Dose: 1,000 mls Departure - Departure Disposition: Home, Routine, Self-Care Clinical Impression: Scalp laceration Qualifiers: Encounter type: initial encounter Qualified Code(s): S01.01XA - Laceration without foreign body of scalp, initial encounter Condition: Good Instructions: Laceration (ED) Additional Instructions: Your trent need to be removed in 7 days, return to the ER in 7 days for staple removal Referrals: [facility] ,. [Edm Groups for Call Sched] - As per Instructions
--- NOTE | 2017-06-04 23:06 | CPEKG ---
Heart Rate: 61 RR Interval: 984 P-R Interval: 164 QRSD Interval: 68 QT Interval: 456 QTC Interval: 460 P [place]: 78 QRS [place]: 10 T Wave [place]: 70 EKG Severity - NORMAL ECG - EKG Impression: SINUS RHYTHM Electronically Signed By: Niels Quach 05-Jun-2017 19:13:08
[2017-06-04 23:35] LABS: PLATELET COUNT 213 10^3/uL (150-400)
[2017-06-04] MEDS ORDERED: NS 1,000 ML IV ONE (23:42)
[2017-06-05 01:40] VITALS: BP 171/69
== END 2017-06-05 01:40 | disposition home or self-care (01) ==
LOC: EDUNIT#
PROC: 0HQ0XZZ Repair Scalp Skin, External Approach (ICD-10-PCS; principal; 2017-06-04)
DX: S01.01XA Laceration without foreign body of scalp, initial encounter (principal); I10 Essential (primary) hypertension; E11.9 Type 2 diabetes mellitus without complications; Z79.82 Long term (current) use of aspirin; Z79.84 Long term (current) use of oral hypoglycemic drugs; W22.8XXA Striking against or struck by other objects, initial encounter; Y92.128 Other place in nursing home as the place of occurrence of the external cause; Y99.8 Other external cause status; Y93.89 Activity, other specified
CPT/HCPCS: G0480